=== PATIENT | female | born 1980 | race African-American/Black ===

== ENCOUNTER 2018-06-25 11:26 | Day surgery (SDC) | payer OTHER ==
[2018-06-24 13:22] VITALS: BMI 36.2
[2018-06-25] MEDS ORDERED: BUPIVACAINE HCL/PF 0.5% (5MG/ML) 10 ML VIAL ONE (12:58)
[2018-06-25] MEDS ORDERED: fentaNYL CITRATE 250 MCG/5 ML VIAL ONE (13:04)
[2018-06-25] MEDS ORDERED: MIDAZOLAM HCL 2 MG/2 ML SINGLE DOSE VIAL ONE (13:04)
[2018-06-25] MEDS ORDERED: ceFAZolin SODIUM 1 GM VIAL IVPB ONE (13:48)
[2018-06-25] MEDS ORDERED: oxyCODONE HCL 5 MG TABLET PO PRN (13:59)
[2018-06-25] MEDS ORDERED: ONDANSETRON 4 MG/2 ML VIAL IVPUSH PRN ×2 (13:59→15:47)
[2018-06-25] MEDS ORDERED: LACTATED RINGERS SOLUTION 1,000 ML IV SCH (14:00)
[2018-06-25] MEDS ORDERED: BUPIVACAINE HCL/PF (5 MG/ML) 30 ML VIAL IJ ONE ×2 (14:19)
[2018-06-25] MEDS ORDERED: PROPOFOL 20 ML ONE (15:26)
[2018-06-25] MEDS ORDERED: ENOXAPARIN NA (PORCINE) 40 MG/0.4 ML DISP.SYRIN SQ ONE (15:47)
[2018-06-25] MEDS ORDERED: PROMETHAZINE HCL 50 MG/1 ML AMP IM PRN (15:47)
--- NOTE | 2018-06-25 15:57 | OP ---
Operative Note - Note: Operative Date: 06/25/18 Pre-Operative Diagnosis: GE Reflux Disease. Epigastric Pain. Mechanical Complication of Implantable Device secondary to Gastric Band Operation: Removal of Gastric Band plus subcutaneous port component. Laparoscopic lysis of adhesions. Excision of fibrous capsule around stomach. Diagnostic Laparoscopy Findings: Large amount of adesions in RUQ of abdomen Fibrous capsule around stomach excised carefully Post-Operative Diagnosis: Same as Pre-op (Abdominal adhesions; Fibrous capsule around stomach) Surgeon: Aleksander Palomares Supervisor Grove: Liang Neil Anesthesia: General Specimens Removed: Gastric Band plus subcutaneous port component Estimated Blood Loss (mls): 30 Operative Report Dictated: Yes
[2018-06-25] MEDS ORDERED: SODIUM CHLORIDE 1,000 ML IV SCH (16:00)
[2018-06-25] MEDS ORDERED: DEXAMETHASONE SOD PHOSPHATE 4 MG/1 ML VIAL ONE (16:00)
--- NOTE | 2018-06-25 16:31 | SURG ---
Surgery Cook Station Note Cook Station: Liang Neil PA-C (Suzy) Date of Service: 06/25/18 Diagnosis: GE Reflux Disease. Epigastric Pain. Mechanical Complication of Implantable Device secondary to Gastric Band Procedure: Removal of Gastric Band plus subcutaneous port component. Laparoscopic lysis of adhesions. Excision of fibrous capsule around stomach. Diagnostic Laparoscopy I was present for the entirety of the operative procedure. For further detail, please refer to operative report. Visit type - Case Type Case Type: Scheduled - Emergency Emergency Visit: No - New patient This patient is new to me today: Yes Date on this admission: 06/25/18 - Critical Care Critical Care patient: No
[2018-06-25] MEDS ORDERED: ACETAMINOPHEN 1000 MG/100 ML VIAL (NON FORMULARY) IVPB ONE (16:40)
[2018-06-25] MEDS ORDERED: ACETAMINOPHEN INJECTION 100 ML IVPB ONE (16:41)
--- NOTE | 2018-06-25 16:48 | OP ---
DATE OF OPERATION: 06/25/2018 PREOPERATIVE DIAGNOSES: 1. Gastroesophageal reflux disease. 2. Epigastric pain. 3. Mechanical complication of implantable device secondary to gastric band. POSTOPERATIVE DIAGNOSES: 1. Gastroesophageal reflux disease. 2. Epigastric pain. 3. Mechanical complication of implantable device secondary to gastric band. 4. Abdominal adhesions. 5. Fibrous capsule around the stomach. PROCEDURE PERFORMED: 1. Removal of gastric band plus subcutaneous port component. 2. Laparoscopic lysis of adhesions. 3. Excision of fibrous capsule around the stomach. 4. Diagnostic laparoscopy. OPERATING SURGEON: Aleksander Palomares MD ALLERGY AND IMMUNOLOGY CHIEF: EVE Israel ANESTHESIA: General. ESTIMATED BLOOD LOSS: 30 mL. DESCRIPTION OF PROCEDURE: The patient was brought into the operating room, placed on the OR table in a supine position. All precautions were taken initially including padding for the back and the feet, and Venodyne boots were placed on both lower extremities. At that point, the abdomen was prepped and draped in the usual manner. A Veress needle was placed in the left upper quadrant, and a pneumoperitoneum was established. A No. 12 bladeless trocar was placed in the left upper quadrant. Through that trocar, a laparoscopic camera was placed. Under direct vision, a No. 12 bladeless trocars were placed below the left costal margin in the anterior axillary line. Using that as a camera port, there was noted to be a large amount of adhesions right upper quadrant preventing further placement of trocars. A laparoscopic scissor was then placed in the left upper quadrant port and used to dissect enough of the abdominal adhesions in the right upper quadrant so that two No. 5 bladeless trocars were placed in the right upper quadrant. At this point, a Snehal liver retractor was placed in the epigastrium to retract the left lobe of the liver. The patient was then placed in 20-degree reverse Trendelenburg position by Anesthesia. The band tubing was noted, and the assistant coach surgeon retracted the band tubing toward the patient's left side as the operating surgeon used electrocautery to dissect the scar tissue and the adhesions and the fibrous capsule off the band on the lesser curvature side of the stomach. This was done until the band was in full view on the lesser curvature side. At this point, the operating surgeon retracted the band tubing toward the patient's right side as the assistant coach surgeon retracted the stomach inferiorly. Now electrocautery was used to dissect the fibrous capsule off the greater curvature side of the stomach and then continued laterally until the entire band was in full view on the anterior portion of the stomach. The band was then cut and was opened and was cut in two and both pieces removed from around the stomach and sent off the field as a specimen to pathology. Attention was now directed to the fibrous capsule around the stomach. This was lifted up by the operating and assisting surgeon and then the laparoscopic scissor was gently placed underneath the capsule dissecting it off the stomach wall and then able to cut it, and it was split from inferior to superior. When it was completed, the entire fibrous capsule was now off the anterior stomach wall, which was in full view. At this point, Anesthesia inserted Methylene blue into the orogastric tube to make sure there were no signs of any stomach wall injury. After approximately 10 minutes, there was no Methylene blue noted, and at that point, under direct vision, all trocars were removed from the abdominal cavity and the pneumoperitoneum released. The right upper quadrant trocar site was extended with a scalpel laterally and dissected continuously with electrocautery through the subcutaneous tissue to the fibrous capsule around the port on the right anterior rectus muscle fascia. The port was then removed from the anterior rectus muscle and sent off the field as a specimen to pathology with the rest of the band. Minor bleeding in this area was controlled with electrocautery. A No. 10 Haja-Hernandez drain was placed from the right side of the patient's abdomen into the wound and placed just in the area where the port was removed to prevent postoperative seroma. The subcutaneous tissue then was closed with 3-0 Vicryl in interrupted fashion on the subcutaneous tissue. All trocar sites then received 0.25% Marcaine and were closed with 4-0 Biosyn in subcuticular fashion. Dressings were applied. The patient was awoken from anesthesia and transferred out of the operating room to the recovery room in stable condition. Nickolas [id number]
[2018-06-25 16:54] LABS: HEMATOCRIT 36.7 % (32.4-45.2); HEMOGLOBIN 12.6 GM/dL (10.7-15.3); MCH 29.7 pg (25.7-33.7); MCHC 34.4 g/dl (32.0-36.0); MEAN CELL VOLUME 86.2 fl (80-96); MEAN PLT VOLUME 7.6 fl (7.5-11.1); PLATELET COUNT 276 K/MM3 (134-434); RBC 4.26 M/mm3 (3.60-5.2); RDW 14.4 % (11.6-15.6)
[2018-06-25 17:24] LABS: ANION GAP 7 MMOL/L (8-16); BLOOD UREA NITROGEN 11 mg/dL (7-18); CALCIUM 7.9 mg/dL (8.5-10.1); CHLORIDE 108 mmol/L (98-107); CO2 24 mmol/L (21-32); CREATININE 0.7 mg/dL (0.55-1.3); GLUCOSE,RANDOM 98 mg/dL (74-106); POTASSIUM 3.9 mmol/L (3.5-5.1); SODIUM 139 mmol/L (136-145)
[2018-06-25] MEDS ORDERED: oxyCODONE HCL 5 MG TABLET ONE (18:37)
[2018-06-25] MEDS ORDERED: FAMOTIDINE 20 MG PREMIXED IVPB IVPB ONE (19:00)
[2018-06-25 19:40] VITALS: BP 113/64; PULSE 66; TEMP 98
[2018-06-25] MEDS ORDERED: FAMOTIDINE 20 MG/50 ML IVPB 20 MG/50 ML MG IVPB SCH (22:00)
--- NOTE | 2018-06-26 16:46 | EKG ---
Test Reason : Blood Pressure : / mmHG Vent. Rate : 053 BPM Atrial Rate : 053 BPM P-R Int : 160 ms QRS Dur : 074 ms QT Int : 436 ms P-R-T Axes : 030 082 064 degrees QTc Int : 409 ms SINUS BRADYCARDIA WITH SINUS ARRHYTHMIA OTHERWISE NORMAL ECG NO PREVIOUS ECGS AVAILABLE Confirmed by Iris Oshea ([id number]) on 06/26/2018 4:45:48 PM Referred By: DR HENDERSON Confirmed By:Iris Oshea
--- NOTE | 2018-06-29 17:40 | PATH ---
Surgical Pathology Report Patient Name: AUDREY BENOIT [facility]. Rec. #: [id number] /Age/Gender: 1980 (Age: 38) / F Account: [id number] Location: [facility] SURGICAL Taken: 06/25/2018 Received: 06/28/2018 Reported: 06/29/2018 Physicians: Aleksander Palomares M.D. Specimen(s) Received GASTRIC BAND Clinical History Completion of gastric band procedure Final Diagnosis GASTRIC BAND, REMOVAL: GASTRIC BAND. MACROSCOPIC DIAGNOSIS. Electronically Signed Valeria Flanagan M.D. Gross Description Received fresh labeled "gastric band," are 2 portions of a disrupted gastric band measuring 8.5 x 2.2 x 1.0 cm and 5.4 x 2.2 x 1.0 cm. The larger portion displays a 40 cm in length portion of tubing extending from one aspect. Also received within the same container is a 3.2 cm in diameter x 1.5 cm in depth pizarro, circular device, consistent with a port. The port displays a 12.5 cm in length portion of tubing extending from one aspect. No soft tissue is present. No sections are submitted, gross only. 06/28/2018 saudi06/28/2018
== END 2018-06-25 19:35 | disposition home or self-care (01) ==
LOC: JASU-SURG 11:26 → EDSTATUS 13:30 → JASU-SURG 19:35
PROVIDERS: ATTEND Surgery
PROC: 0DP64YZ Removal of Other Device from Stomach, Percutaneous Endoscopic Approach (ICD-10-PCS; principal; 2018-06-25 13:00)
DX: T85.898A Other specified complication of other internal prosthetic devices, implants and grafts, initial encounter (principal); K21.9 Gastro-esophageal reflux disease without esophagitis; R10.13 Epigastric pain; K66.0 Peritoneal adhesions (postprocedural) (postinfection)
CPT/HCPCS: 36415; 80048; 84703; 85027; 86850; 86900; 86901; 88300-TC; 93005; 93010; 94760; J0131

== ENCOUNTER 2018-09-06 08:59 | Inpatient (IN) | payer OTHER ==
--- NOTE | 2018-09-06 09:13 | PDOC ---
History of Present Illness - History of Present Illness Initial Comments: 09/06/18 09:13 38 year old with a history of gallstones, scheduled gastric sleeve today at 11: 30pm who presents with 3-4x of sharp, burning pain that lasted seconds to min , the last one being this AM. These symptoms are very typical of her regular biliary colic, but was instructed to come to the ED by surgeon Dr. Palomares if she was to have symptoms as she was scheduled for surgery today. Patient admits to some nausea at time of symptoms but notes resolution of all symptoms at bedside. Denies any vomiting, fever, diarrhea, constipation, dysuria, hematuria , chest pain or shortness of breath. <Milly Duncan - Last Filed: 09/06/18 09:13> <Haider Dos Santos - Last Filed: 09/06/18 11:28> - General Chief Complaint: Pain Stated Complaint: INTERMITTENT MID EPIGASTRIC PAIN Time Seen by Provider: 09/06/18 09:11 Past History - Past Medical History Anemia: Yes (HAS BEEN ON IRON IN THE PAST) Asthma: Yes (HASN'T USED INHALER IN A FEW YEARS) Cancer: No Cardiac Disorders: No CVA: No COPD: No CHF: No Dementia: No Diabetes: No GI Disorders: Yes (CHOLELITHIASIS 05/11) Disorders: No HTN: No Hypercholesterolemia: No Liver Disease: No Seizures: No Thyroid Disease: Yes - Surgical History Abdominal Surgery: Yes (GASTRIC BANDING 2009,REMOVED 06/25/18) Appendectomy: No Cardiac Surgery: No Cholecystectomy: No Lung Surgery: No Neurologic Surgery: No Orthopedic Surgery: No - Suicide/Smoking/Psychosocial Hx Smoking History: Former smoker Have you smoked in the past 12 months: No If you are a former smoker, when did you quit?: 2016 Hx Alcohol Use: Yes (SOCIALLY) Drug/Substance Use Hx: No Substance Use Type: None Hx Substance Use Treatment: No <Milly Duncan - Last Filed: 09/06/18 09:13> <Haider Dos Santos - Last Filed: 09/06/18 11:28> - Past Medical History Allergies/Adverse Reactions: Allergies Allergy/AdvReac Type Severity Reaction Status Date / Time No Known Drug Allergies Allergy Verified 06/25/18 12:42 EGGPLANT Allergy Intermediate Hives Uncoded 09/06/18 09:02 silk tape Allergy "rash and Uncoded 06/25/18 12:42 then skin discoloration" Home Medications: Ambulatory Orders Levothyroxine [Synthroid -] 50 mcg PO DAILY 06/25/18 Bupropion HCl [Wellbutrin Xl -] 150 mg PO DAILY 09/02/18 *Physical Exam - Physical Exam Comments: 09/06/18 10:02 negative exam <Milly Duncan - Last Filed: 09/06/18 09:13> - Vital Signs Last Vital Signs Temp Pulse Resp BP Pulse Ox 99.1 F 82 16 124/68 98 09/06/18 09:01 09/06/18 09:01 09/06/18 09:01 09/06/18 09:01 09/06/18 09:01 <Haider Dos Santos - Last Filed: 09/06/18 11:28> ED Treatment Course - LABORATORY CBC & Chemistry Diagram: 09/06/18 09:45 09/06/18 09:45 - ADDITIONAL ORDERS Additional order review: Laboratory Results 09/06/18 09:45 Sodium 138 Potassium 4.3 Chloride 104 Carbon Dioxide 25 Anion Gap 9 BUN 12 Creatinine 0.7 Creat Clearance w eGFR 94.68 Random Glucose 107 H Calcium 8.7 Total Bilirubin 0.6 AST 19 ALT 14 Alkaline Phosphatase 77 Total Protein 6.7 Albumin 3.6 09/06/18 09:45 RBC 4.28 MCV 86.6 MCHC 33.4 RDW 14.2 MPV 7.6 Neutrophils % 62.5 Lymphocytes % 29.0 Monocytes % 6.4 Eosinophils % 1.8 Basophils % 0.3 - RADIOLOGY Radiology Studies Ordered: Category Date Time Status ABDOMEN US -LIMITED [US] Stat Ultrasound 09/06/18 09:35 Completed <Haider Dos Santos - Last Filed: 09/06/18 11:28> Medical Decision Making - Medical Decision Making 09/06/18 10:02 8 year old with a history of gallstones, scheduled gastric sleeve today at 11: 30pm who presents with 3-4x of sharp, burning pain that lasted seconds to min , the last one being this AM. These symptoms are very typical of her regular biliary colic, but was instructed to come to the ED by surgeon Dr. Palomares if she was to have symptoms as she was scheduled for surgery today. ED Course: ddx ibnlt: biliary colic vs pancreatitis vs cholecysttis vs cbc, cmp, lipase, US <Milly Duncan - Last Filed: 09/06/18 09:13> *DC/Admit/Observation/Transfer <Milly Duncan - Last Filed: 09/06/18 09:13> - Discharge Dispostion Decision to Admit order: Yes <Haider Dos Santos - Last Filed: 09/06/18 11:28> Diagnosis at time of Disposition: Gallstones - Discharge Dispostion Condition at time of disposition: Stable - Referrals Referrals: Shana Carrion [Primary Care Provider] - - Patient Instructions - Post Discharge Activity
[2018-09-06 09:15] VITALS: BMI 39.3
[2018-09-06 10:01] LABS: BASO % 0.3 % (0-2.0); EOS % 1.8 % (0-4.5); HEMOGLOBIN 12.4 GM/dl (10.7-15.3); MCH 28.9 pg (25.7-33.7); MCHC 33.4 g/dl (32.0-36.0); MEAN CELL VOLUME 86.6 fl (80-96); MEAN PLT VOLUME 7.6 fl (7.5-11.1); MONO % 6.4 % (3.8-10.2); NEUT % 62.5 % (42.8-82.8); PLATELET COUNT 345 K/MM3 (134-434); RBC 4.28 M/mm3 (3.60-5.2); RDW 14.2 % (11.6-15.6); WHITE BLOOD COUNT 6.7 K/mm3 (4.0-10.8)
[2018-09-06 10:12] LABS: ALBUMIN 3.6 g/dl (3.4-5.0); ALK PHOS 77 U/L (45-117); ANION GAP 9 MMOL/L (8-16); BILIRUBIN,TOTAL 0.6 mg/dl (0.2-1); BLOOD UREA NITROGEN 12 mg/dl (7-18); CALCIUM 8.7 mg/dl (8.5-10); CHLORIDE 104 mmol/L (98-107); CO2 25 mmol/L (21-32); CREATININE 0.7 mg/dl (0.55-1.3); GLUCOSE,RANDOM 107 mg/dl (74-106); POTASSIUM 4.3 mmol/L (3.5-5.1); SGOT/AST 19 U/L (15-37); SGPT/ALT 14 U/L (13-61); SODIUM 138 mmol/L (136-145); TOT PROT 6.7 g/dl (6.4-8.2)
--- NOTE | 2018-09-06 11:27 | PDOC ---
Attending Attestation - Resident Resident Name: Milly Duncan - ED Attending Attestation I have performed the following: I have examined & evaluated the patient, The case was reviewed & discussed with the resident, I agree w/resident's findings & plan, Exceptions are as noted - HPI HPI: 09/06/18 11:25 Reviewed Residents HPI - Physicial Exam PE: 09/06/18 11:25 Vitals: Triage Vital signs reviewed General Appearance: no acute distress, well nourished well developed, Head: Atraumatic, Neck: Supple;No Nucal rigidity Chest Wall: Nontender Cardiac: Regular rate and rhythym, no murmurs, no rubs, no gallops, Lungs: Clear to auscultation bilateral, good air movement bilaterally, Abdomen: Soft, non distended, normal bowel sounds, non tender to palpation Extremities: Full range of motion to all extremities, no cyanosis, clubbing, or edema Skin: Warm and dry, no rashes or lesions, no rash, no petechiae Psych: normal mood, normal affect - Medical Decision Making 09/06/18 11:26 Well-appearing no apparent distress scheduled for gastric sleeve today with intermittent right upper quadrant pain. Patient has known history of gallstones. No fever no chills no chest pain or shortness of breath Laboratory analysis demonstrates no elevated white blood cell count normal LFTs normal alkaline phosphatase and normal bilirubin A limited ultrasound demonstrates gallstones but no evidence of acute cholecystitis her CBD was dilated to 8 Patient has had this finding before has had an ERCP before is likely intermittently passing stones through her CBD Given normal laboratory analysis low suspicion for acute obstruction at this time Case discussed with patient surgeon , stable to be discharged from ED he will consider cholecystectomy after gastric sleeve today.
[2018-09-06 11:45] LABS: LIPASE 94 U/L (73-393)
[2018-09-06] MEDS ORDERED: fentaNYL CITRATE 250 MCG/5 ML VIAL ONE ×2 (12:09→13:28)
[2018-09-06] MEDS ORDERED: MIDAZOLAM HCL 2 MG/2 ML SINGLE DOSE VIAL ONE (12:10)
[2018-09-06] MEDS ORDERED: PROPOFOL 20 ML ONE ×2 (12:10)
[2018-09-06] MEDS ORDERED: SUCCINYLCHOLINE CHLORIDE 200 MG/10 ML VIAL ONE (12:10)
[2018-09-06] MEDS ORDERED: ROCURONIUM BROMIDE 50 MG/5 ML VIAL ONE ×2 (12:10→14:52)
[2018-09-06] MEDS ORDERED: ALBUTEROL SO4 8 GM HFA INHALER IH ONE (12:13)
[2018-09-06] MEDS ORDERED: LIDOCAINE HCL 2% JELLY (5 ML/TUBE) ONE ×2 (12:13→12:58)
[2018-09-06] MEDS ORDERED: ceFAZolin SODIUM 1 GM VIAL ONE (12:58)
[2018-09-06] MEDS ORDERED: ONDANSETRON 4 MG/2 ML VIAL ONE (12:58)
[2018-09-06] MEDS ORDERED: KETOROLAC TROMETHAMINE 30 MG/1 ML VIAL ONE (12:58)
[2018-09-06] MEDS ORDERED: LIDOCAINE HCL/PF 2% SDV 5ML VIAL ONE (12:58)
[2018-09-06] MEDS ORDERED: DEXAMETHASONE SOD PHOSPHATE 4 MG/1 ML VIAL ONE (12:58)
[2018-09-06] MEDS ORDERED: BUPIVACAINE HCL/PF 2.5 MG/ML - 30 ML VIAL IJ ONE (13:13)
[2018-09-06] MEDS ORDERED: FAMOTIDINE 20 MG/50 ML IVPB 20 MG/50 ML MG IVPB ONE (13:41)
[2018-09-06] MEDS ORDERED: ePHEDrine SULFATE 50 MG/1 ML AMPULE ONE (13:44)
[2018-09-06] MEDS ORDERED: PHENYLEPHRINE HCL 10 MG/1 ML SINGLE DOSE VIAL ONE (13:55)
[2018-09-06] MEDS ORDERED: BUPIVACAINE HCL/PF 0.25% (2.5MG/ML) 10 ML VIAL IJ ONE (15:42)
[2018-09-06] MEDS ORDERED: NEOSTIGMINE METHYLSULFATE 0.5 MG/ML - 10 ML MDV ONE (15:47)
[2018-09-06] MEDS ORDERED: GLYCOPYRROLATE 0.2 MG/1 ML VIAL ONE (15:47)
[2018-09-06] MEDS ORDERED: ESMOLOL HCL 100,000 MCG/10 ML VIAL ONE (15:53)
[2018-09-06] MEDS ORDERED: HYDROmorphone HCL/PF 1 MG/ML AMP ONE (16:20)
[2018-09-06] MEDS ORDERED: ONDANSETRON 4 MG/2 ML VIAL IVPUSH PRN ×2 (16:37→16:39)
[2018-09-06] MEDS ORDERED: oxyCODONE HCL 5 MG TABLET PO PRN (16:39)
[2018-09-06] MEDS ORDERED: PROMETHAZINE HCL 25 MG/1 ML VIAL IVPUSH PRN (16:39)
[2018-09-06] MEDS ORDERED: FAMOTIDINE 20 MG PREMIXED IVPB IVPB ONE (16:40)
[2018-09-06] MEDS ORDERED: SODIUM CHLORIDE 1,000 ML IV SCH (16:45)
--- NOTE | 2018-09-06 16:45 | OP ---
Operative Note - Note: Operative Date: 10/06/18 Pre-Operative Diagnosis: Morbid Obesity. Cholelithiasis with Chronic cholecystitis Operation: Laparoscopic Vertical Sleeve Gastrectomy. Laparoscopic Cholecystectomy. Laparoscopic Lysis of Adhesions. Diagnostic Laparoscopy Findings: Greater curve sleeve gastrectomy performed with [address] Adhsions noted between liver and omentum and lysis performed Gallbladder with significant inflammation and oozing noted from liver bed Post-Operative Diagnosis: Same as Pre-op (Abdominal adhesions) Surgeon: Aleksander Palomares System Software Programmer: Jason Silva Anesthesia: General Specimens Removed: Greater curve of stomach. Gallbladder Estimated Blood Loss (mls): 200 Drains & Tubes with Location: J-P drain in RUQ near liver bed Operative Report Dictated: Yes
[2018-09-06] MEDS ORDERED: METOCLOPRAMIDE HCL INJECTION 10 MG/2 ML VIAL IVPUSH ONE (16:50)
[2018-09-06] MEDS ORDERED: METOCLOPRAMIDE HCL INJECTION 10 MG/2 ML VIAL ONE (16:58)
[2018-09-06] MEDS ORDERED: ALBUTEROL SO4 8 GM HFA INHALER IH PRN (17:31)
[2018-09-06 17:32] LABS: ALBUMIN 3.3 g/dl (3.4-5.0); ALK PHOS 71 U/L (45-117); ANION GAP 10 MMOL/L (8-16); BILIRUBIN,TOTAL 0.6 mg/dl (0.2-1); BLOOD UREA NITROGEN 12 mg/dl (7-18); CALCIUM 8.1 mg/dl (8.5-10); CHLORIDE 105 mmol/L (98-107); CO2 22 mmol/L (21-32); CREATININE 0.8 mg/dl (0.55-1.3); GLUCOSE,RANDOM 159 mg/dl (74-106); HEMATOCRIT 35.3 % (32.4-45.2); MCH 29.6 pg (25.7-33.7); MCHC 33.8 g/dl (32.0-36.0); MEAN CELL VOLUME 87.3 fl (80-96); MEAN PLT VOLUME 7.8 fl (7.5-11.1); PLATELET COUNT 311 K/MM3 (134-434); POTASSIUM 3.9 mmol/L (3.5-5.1); RBC 4.05 M/mm3 (3.60-5.2); SGOT/AST 180 U/L (15-37); SGPT/ALT 117 U/L (13-61); SODIUM 137 mmol/L (136-145); TOT PROT 6.1 g/dl (6.4-8.2); WHITE BLOOD COUNT 15.7 K/mm3 (4.0-10.8)
[2018-09-06] MEDS: morphine CARPU-JECT 2 MG/1 ML DISP.SYRIN IVPUSH PRN (19:52)
[2018-09-06] MEDS: METOCLOPRAMIDE HCL INJECTION 10 MG/2 ML VIAL IVPUSH SCH (20:31)
[2018-09-06] MEDS: oxyCODONE HCL 5 MG TABLET PO PRN (21:07)
[2018-09-06] MEDS: FAMOTIDINE 20 MG/50 ML IVPB 20 MG/50 ML MG IVPB SCH (21:07)
[2018-09-06 22:52] LABS: HEMATOCRIT 32.7 % (32.4-45.2); HEMOGLOBIN 10.9 GM/dl (10.7-15.3); MCH 28.8 pg (25.7-33.7); MCHC 33.3 g/dl (32.0-36.0); MEAN CELL VOLUME 86.5 fl (80-96); MEAN PLT VOLUME 7.2 fl (7.5-11.1); PLATELET COUNT 305 K/MM3 (134-434); RBC 3.78 M/mm3 (3.60-5.2); RDW 14.2 % (11.6-15.6); WHITE BLOOD COUNT 12.3 K/mm3 (4.0-10.8)
[2018-09-07] MEDS: METOCLOPRAMIDE HCL INJECTION 10 MG/2 ML VIAL IVPUSH SCH ×4 (03:07→21:13)
[2018-09-07] MEDS: oxyCODONE HCL 5 MG TABLET PO PRN (03:11)
--- NOTE | 2018-09-07 07:51 | OP ---
DATE OF OPERATION: 09/06/2018 PREOPERATIVE DIAGNOSES: 1. Morbid obesity. 2. Cholelithiasis with chronic cholecystitis. POSTOPERATIVE DIAGNOSIS: 1. Morbid obesity. 2. Cholelithiasis with chronic cholecystitis. 3. Abdominal adhesions. PROCEDURE PERFORMED: 1. Laparoscopic vertical sleeve gastrectomy. 2. Laparoscopic cholecystectomy. 3. Laparoscopic lysis of adhesions. 4. Diagnostic laparoscopy. OPERATING SURGEON: Sid Palomares MD DIRECTOR PERSONAL: Jason Silva MD ANESTHESIA: General. EXPECTED BLOOD LOSS: 200 mL. DESCRIPTION OF PROCEDURE: The patient was brought into the operating room and placed on the OR table in the supine position. All precautions were taken initially, including padding for the back and the feet, and a Foster catheter was placed. At that point the abdomen was prepped and draped in the usual manner. A Veress needle was placed in the left upper quadrant and a pneumoperitoneum was established. A No. 5 bladeless trocar was placed under direct vision with the laparoscopic camera, and the abdomen was entered. Upon entering the abdomen, the laparoscopic camera was used to place the next trocars. This included a No. 15 bladeless trocar just above the umbilicus in the midline, followed by a No. 5 bladeless trocar in the left upper quadrant below the costal margin. This was followed by a No. 5 bladeless trocar in the right upper quadrant. At this point a Snehal liver retractor was placed in the epigastrium to retract the left lobe of the liver. There were adhesions noted between the omentum and also the liver, and these were lysed with the LigaSure device. Once these were lysed and brought down, the patient was placed in a 20-degree reverse Trendelenburg position by Anesthesia. Anesthesia then advanced a bougie, and this was held along the lesser curve. At that point, approximately 6 cm from the pylorus, the greater curve was lifted up by the operating surgeon with his left hand and the technical administrative assistant surgeon grabbed the gastrocolic ligament and pulled it away from the stomach. The LigaSure device was now used to dissect the gastrocolic ligament off the greater curve of the stomach. This continued in a superior and vertical direction until the final short gastric vessel on the greater curve between the superior pole of the spleen and the proximal fundus was divided. The stomach was lifted up from the greater curvature, and the technical administrative assistant surgeon and operating surgeon were then able to lyse some adhesions that were on the posterior wall of the stomach and would have prevented stapling. With the bougie now advanced all the way down to the antrum, the bougie was held along the lesser curve as a series of sudha was performed, first two being black load sudha, 6 cm in length, along the bougie. This was followed by a series of purple load sudha, also 6 cm in length and also hugging the bougie, until the final staple was applied in the left upper quadrant and the greater curve was now completely detached from the lesser curve. It should be noted that prior to firing each staple, both the anterior and posterior rows were checked that they were equal, and in the area of the esophagogastric junction approximately 1 to 1.5 cm of serosa remained on the anterior and posterior surfaces. At this juncture saline was placed around the staple line and Anesthesia inserted air into the bougie, which showed the entire stomach distended. No obstruction and no leaks were noted. Anesthesia then deflated the bougie, and the stomach went back to normal size. Surgicel was placed along the staple line of the bougie, although no active bleeding was noted. Attention was now directed to the gallbladder in the right upper quadrant. Another No. 5 trocar was placed in the right upper quadrant as the working trocar for the technical administrative assistant surgeon, Dr. Silva. The technical administrative assistant surgeon retracted the gallbladder over the liver. It was lifted up. The operating surgeon grabbed the gallbladder and was able to dissect the soft tissue off the gallbladder. With the electrocautery, very carefully, the triangle of Calot was dissected and all soft tissue was removed. Very slowly and deliberately, all the soft tissue was removed from the gallbladder until the cystic duct came in view. The connection between the cystic duct and common duct was clearly in view. Then laparoscopic instruments were used to dissect behind the cystic duct. Once this withdrew on both sides, 2 sudha were placed distally and one proximally, and the cystic duct was then transected. Attention was now directed the electrocautery was used to dissect the soft tissue off the gallbladder more posteriorly to the liver bed. There were no signs of any cystic artery, and I felt that this might have been abutting the cystic duct and taken with the sudha. As the technical administrative assistant surgeon retracted the gallbladder, the operating surgeon used the electrocautery to dissect the gallbladder off the liver bed. there was a lot of edema and also there was significant oozing from the liver bed. Once the gallbladder was completely removed, it was sent off the field as a specimen to pathology and the resected greater curve of the stomach was also sent off the field. At this point electrocautery was used to provide hemostasis to the liver bed and was mostly successful. There were some areas that still appeared to have some minor oozing. Surgicel was placed in these areas and at the further portion, a No. 10 Haja-Hernandez drain was placed in the right upper quadrant and placed under the liver bed in the area of the resected gallbladder. At this point, under direct vision, all trocars were removed and pneumoperitoneum was released. The No. 15 trocar site in the midline was now closed with a 0 Vicryl suture. One suture was used and this was done outside the abdominal cavity with the technical administrative assistant surgeon providing retraction with retractors. Once this was tied, the opening to the abdomen was closed. At this point all trocar sites received 0.25% Marcaine. The midline No. 15 was first closed with 3-0 Vicryl in the subcutaneous tissue, and then all trocar sites were closed with 4-0 Biosyn in subcuticular fashion. Dressings were applied. The patient was awoken from anesthesia and transferred out of the operating room to the recovery room in stable condition. Nickolas [id number]
[2018-09-07] MEDS: FAMOTIDINE 20 MG/50 ML IVPB 20 MG/50 ML MG IVPB SCH ×2 (09:26→21:13)
[2018-09-07] MEDS: morphine CARPU-JECT 2 MG/1 ML DISP.SYRIN IVPUSH PRN ×2 (09:33→12:37)
--- NOTE | 2018-09-07 10:36 | HP ---
DATE OF ADMISSION: 09/06/2018 CHIEF COMPLAINT: Morbid obesity and also right upper quadrant pain. HISTORY OF PRESENT ILLNESS: This patient is a 38-year-old female who has history of morbid obesity for many years despite multiple attempts at dietary weight loss. She also has a history of intermittent right upper quadrant pain secondary to gallstones. She has been treated with ERCP in the past, but complained of recent, over the last 48 hours, increasing pain in the right upper quadrant. Patient was brought to the emergency room where her liver enzymes were within normal limits and no signs of acute cholecystitis; so, she is going to proceed with elective laparoscopic sleeve gastrectomy and also laparoscopic cholecystectomy. PAST MEDICAL HISTORY: Significant for asthma. PAST SURGICAL HISTORY: Tubal ligation, insertion of a gastric band, removal of a gastric band, also right heel spur removal on the right side. MEDICATIONS: Include Synthroid and also Wellbutrin. ALLERGIES: She has allergies to SILK TAPE and to EGGPLANT. REVIEW OF SYSTEMS: Cardiovascular: Within normal limits. Pulmonary: Occasional wheezing. Gastrointestinal: Within normal limits. Musculoskeletal: Within normal limits. Neurologic: Within normal limits. PHYSICAL EXAMINATION: General: Awake, alert, morbidly obese, in no acute distress. HEENT: No masses palpated. Lungs: Clear breath sounds bilaterally. Heart: Regular sinus rhythm. Abdomen: Well-healed upper abdominal incision. Soft, nontender on palpation. Extremities: No signs of swelling, edema; within normal limits. IMPRESSION: Morbid obesity and cholelithiasis. PLAN: The plan is to bring her to surgery for a laparoscopic sleeve gastrectomy, possible open sleeve gastrectomy, and a laparoscopic cholecystectomy to follow. Nickolas [id number]
[2018-09-07 14:08] LABS: HEMATOCRIT 29.8 % (32.4-45.2); HEMOGLOBIN 9.8 GM/dl (10.7-15.3); MCH 28.5 pg (25.7-33.7); MEAN CELL VOLUME 86.3 fl (80-96); MEAN PLT VOLUME 7.6 fl (7.5-11.1); PLATELET COUNT 304 K/MM3 (134-434); RBC 3.45 M/mm3 (3.60-5.2); RDW 14.3 % (11.6-15.6); WHITE BLOOD COUNT 12.3 K/mm3 (4.0-10.8)
[2018-09-07 14:17] LABS: ALBUMIN 3.1 g/dl (3.4-5.0); ALK PHOS 54 U/L (45-117); ANION GAP 4 MMOL/L (8-16); BILIRUBIN,TOTAL 0.7 mg/dl (0.2-1); BLOOD UREA NITROGEN 11 mg/dl (7-18); CHLORIDE 109 mmol/L (98-107); CO2 23 mmol/L (21-32); CREATININE 0.7 mg/dl (0.55-1.3); GLUCOSE,RANDOM 103 mg/dl (74-106); POTASSIUM 3.9 mmol/L (3.5-5.1); SGOT/AST 96 U/L (15-37); SGPT/ALT 90 U/L (13-61); SODIUM 136 mmol/L (136-145); TOT PROT 5.8 g/dl (6.4-8.2)
[2018-09-07] MEDS ORDERED: ACETAMINOPHEN 325 MG TABLET (FP) PO PRN (18:15)
[2018-09-07] MEDS ORDERED: SIMETHICONE 40 MG/0.6 ML BOTTLE PO PRN (18:18)
--- NOTE | 2018-09-07 18:26 | PN ---
Progress Note (short form) - Note Progress Note: POD#1 Afebrile; VSS P-73-98 Pt doing better C/O epigastric gas discomfort P/E- Abd- trocar sites clean , dry J-P drain- dried blood, no oozing noted J-P drain- 150 cc/shift, mostly bloody WBC-12.3 (decreased from 15.7) H/H-9.8/ 29.8 (decreased from 10.9/ 32.7) UGI- contrast flows into SB ? leak at upper frundus posteriorly Discussed with Dr Odom/Dr Pinto CT scan suggested CT shows contrast contained in floppy fundus No extravasation P- Advance to PO clear liquids- 2 oz po tid Decrease IV fluids Continue ambulation, SCD, Incentive spirometer
[2018-09-07] MEDS: SODIUM CHLORIDE 1,000 ML IV SCH (18:27)
[2018-09-08] MEDS: METOCLOPRAMIDE HCL INJECTION 10 MG/2 ML VIAL IVPUSH SCH ×4 (03:53→21:17)
[2018-09-08 08:27] LABS: HEMATOCRIT 28.7 % (32.4-45.2); HEMOGLOBIN 9.4 GM/dl (10.7-15.3); MCH 28.5 pg (25.7-33.7); MCHC 32.8 g/dl (32.0-36.0); MEAN CELL VOLUME 86.8 fl (80-96); MEAN PLT VOLUME 7.7 fl (7.5-11.1); PLATELET COUNT 279 K/MM3 (134-434); RBC 3.31 M/mm3 (3.60-5.2); RDW 14.1 % (11.6-15.6)
[2018-09-08 08:44] LABS: ALBUMIN 2.9 g/dl (3.4-5.0); ALK PHOS 54 U/L (45-117); ANION GAP 9 MMOL/L (8-16); BILIRUBIN,TOTAL 0.9 mg/dl (0.2-1); BLOOD UREA NITROGEN 8 mg/dl (7-18); CALCIUM 7.9 mg/dl (8.5-10); CHLORIDE 105 mmol/L (98-107); CO2 22 mmol/L (21-32); CREATININE 0.6 mg/dl (0.55-1.3); GLUCOSE,RANDOM 81 mg/dl (74-106); POTASSIUM 3.9 mmol/L (3.5-5.1); SGOT/AST 64 U/L (15-37); SGPT/ALT 74 U/L (13-61); SODIUM 136 mmol/L (136-145); TOT PROT 5.6 g/dl (6.4-8.2)
[2018-09-08] MEDS: LEVOTHYROXINE NA 50 MCG TABLET (FP) PO SCH (09:22)
[2018-09-08] MEDS: FAMOTIDINE 20 MG/50 ML IVPB 20 MG/50 ML MG IVPB SCH ×2 (09:23→21:20)
[2018-09-08] MEDS ORDERED: ACETAMINOPHEN 1000 MG/100 ML VIAL (NON FORMULARY) IVPB ONE (18:15)
--- NOTE | 2018-09-08 18:27 | PN ---
Progress Note (short form) - Note Progress Note: POD#2 Afebrile; VSS Pt doing well Tolerating PO clear liquids- 2 oz PO TID No N/V Ambulating well P/E-Abd- all incisions healing well J-P drainage- 130 cc (decreased) WBC-10.0 H/H- 9.4/28.7 P- PO clear liquids- 3 oz po tid Encourage ambulation
[2018-09-08] MEDS: SODIUM CHLORIDE 1,000 ML IV SCH (19:00)
[2018-09-09] MEDS: METOCLOPRAMIDE HCL INJECTION 10 MG/2 ML VIAL IVPUSH SCH ×2 (02:25→10:41)
[2018-09-09] MEDS: LEVOTHYROXINE NA 50 MCG TABLET (FP) PO SCH (06:11)
[2018-09-09 06:21] VITALS: TEMP 98.3
[2018-09-09 09:29] VITALS: BP 120/80; PULSE 70
[2018-09-09] MEDS: FAMOTIDINE 20 MG/50 ML IVPB 20 MG/50 ML MG IVPB SCH (10:42)
--- NOTE | 2018-09-09 11:46 | PN ---
Progress Note (short form) - Note Progress Note: POD#3 Afebrile; VSS Pt doing well Tolerating PO clear liquids- 3 oz PO TID No N/V + flatus P/E- Abd- trocar sites clean, dry J-P drain- 80 cc (decreased) P- D/C pt home Clear liquids- 3 oz po 4-5 times per day F/U for drain removal in 4 days
--- NOTE | 2018-09-09 15:27 | PATH ---
Surgical Pathology Report Patient Name: AUDREY BENOIT [facility]. Rec. #: [id number] /Age/Gender: 1980 (Age: 38) / F Account: <[id number]> Location: [facility] R Taken: 09/06/2018 Received: 09/06/2018 Reported: 09/09/2018 Physicians: Aleksander Palomares M.D. Specimen(s) Received A: GREATER CURVATURE STOMACH B: GALLBLADDER Clinical History Multiple gallstones, morbid obesity Final Diagnosis A. GREATER CURVATURE OF STOMACH, LAPAROSCOPIC SLEEVE GASTRECTOMY: PORTION OF STOMACH WITH NO SIGNIFICANT PATHOLOGIC FINDINGS. IMMUNOSTAIN IS NEGATIVE FOR H. PYLORI ORGANISMS. B. GALLBLADDER, CHOLECYSTECTOMY: CHRONIC CHOLECYSTITIS AND CHOLELITHIASIS. Electronically Signed Renee Avila M.D. Gross Description A. Received in formalin, labeled "greater curvature of stomach," is an 85 gram, 20.0 x 2.5 x 2.3 cm. portion of stomach with a stapled margin of resection. The serosa is pizarro-meadows with minimal attached fat. The mucosa is pizarro-pink with focally flattened folds. No mucosal masses are identified. Seamless Tube Roller sections are submitted in one cassette. B. Received in formalin, labeled "gallbladder," is a 9.5 x 3.3 x 3.0 cm. gallbladder with a 0.2 cm. in length portion of cystic duct attached. The outer surface is pizarro-meadows with a focal defect and varies from smooth to shaggy. The lumen contains pizarro, tenacious bile as well as abundant yellow, irregular to fragmented choleliths ranging from 0.1-1.0 cm in greatest dimension. The mucosa is pizarro and focally eroded. The wall of the gallbladder measures 0.1 cm. in thickness. Seamless Tube Roller sections are submitted in one cassette. /09/07/201809/07/2018
== END 2018-09-09 12:18 | disposition home or self-care (01) | DRG 620 ==
LOC: FER 08:59 → FASUSAT 11:28 → FM/S 16:37
PROVIDERS: ADMIT Surgery; ATTEND Surgery
PROC: 0DNW4ZZ Release Peritoneum, Percutaneous Endoscopic Approach (ICD-10-PCS; 2018-09-06)
PROC: 0DJ08ZZ Inspection of Upper Intestinal Tract, Via Natural or Artificial Opening Endoscopic (ICD-10-PCS; 2018-09-06)
PROC: 0DB64Z3 Excision of Stomach, Percutaneous Endoscopic Approach, Vertical (ICD-10-PCS; principal; 2018-09-06 12:48)
PROC: 0FT44ZZ Resection of Gallbladder, Percutaneous Endoscopic Approach (ICD-10-PCS; 2018-09-06 12:48)
DX: E66.01 Morbid (severe) obesity due to excess calories (principal); K80.10 Calculus of gallbladder with chronic cholecystitis without obstruction; Z68.39 Body mass index [BMI] 39.0-39.9, adult; K66.0 Peritoneal adhesions (postprocedural) (postinfection)
CPT/HCPCS: 36415; 74176-TC; 74190-TC-FY; 74241-TC-FY; 76705-TC; 80053; 81025; 83690; 85025; 85027; 88304-TC; 88305-TC; 94760; 99282-25; J0131; J7030